=== PATIENT | female | born 1990 | race Two or more races ===

== ENCOUNTER 2018-12-22 10:44 | Inpatient (IN) | payer MEDICAID ==
[~2018-12-22] VITALS: Ht 165.1 cm; Wt 73.0 kg
[2018-12-22] MEDS ORDERED: MIRT15 PO (10:49)
[2018-12-22] MEDS ORDERED: QUET25TA PO (10:50)
[2018-12-22] MEDS ORDERED: LAMO100 PO (10:50)
[2018-12-22] MEDS ORDERED: ESCI20TA PO (10:50)
[2018-12-22] MEDS ORDERED: GABA-531 PO (10:52)
[2018-12-22] MEDS ORDERED: GABA-529 PO (10:52)
[2018-12-22 11:12] VITALS: BP 121/80
[2018-12-22] MEDS: GABAPENTIN 100 MG CAPSULE PO SCH (13:01)
[2018-12-22] MEDS: MIRTAZAPINE 15 MG TABLET PO SCH (13:01)
[2018-12-22] MEDS: LamoTRIgine 100 MG TABLET PO SCH (13:02)
[2018-12-22] MEDS: ESCITALOPRAM OXALATE 20 MG TABLET PO SCH (13:02)
[2018-12-22] MEDS ORDERED: LOPERAMIDE HCL 2 MG CAPSULE PO PRN (14:30)
[2018-12-22] MEDS ORDERED: CloNIDine HCL 0.1 MG TABLET PO PRN (14:30)
[2018-12-22] MEDS ORDERED: ALBUTEROL SULFATE HFA 90 MCG/PUFF 8 GM INHALER IH PRN (14:30)
[2018-12-22] MEDS ORDERED: NICOTINE 14 MG/24 HOUR PATCH TD PRN (14:30)
[2018-12-22] MEDS ORDERED: ACETAMINOPHEN 325 MG TABLET PO PRN (14:30)
[2018-12-22] MEDS ORDERED: ONDANSETRON HCL 4 MG TABLET PO PRN (14:30)
[2018-12-22] MEDS ORDERED: MAGNESIUM HYDROXIDE SUSPENSION 30 ML UDCUP PO PRN (14:30)
[2018-12-22] MEDS ORDERED: DOCUSATE SODIUM 100 MG CAPSULE PO PRN (14:30)
[2018-12-22] MEDS ORDERED: IBUPROFEN 400 MG TABLET PO PRN (14:30)
[2018-12-22] MEDS ORDERED: MAG HYDROX/AL HYDROX/SIMETH ES 30 ML SUSPENSION UDCUP PO PRN (14:30)
[2018-12-22] MEDS ORDERED: PETROLATUM,WHITE 28 GM JELLY TP PRN (14:30)
[2018-12-22] MEDS ORDERED: GuaiFENesin/D-METHORPHAN [SUGAR-FREE] 200-20MG/10 ML SYRUP UDCUP PO PRN (14:30)
[2018-12-22] MEDS: GABAPENTIN 300 MG CAPSULE PO SCH (20:39)
[2018-12-22] MEDS ORDERED: QUEtiapine FUMARATE 25 MG TABLET PO SCH (21:00)
[2018-12-23 00:07] VITALS: BP 125/77
[2018-12-23 08:23] VITALS: BP 108/71
[2018-12-23] MEDS ORDERED: LamoTRIgine 100 MG TABLET PO SCH (09:00)
[2018-12-23] MEDS ORDERED: GABAPENTIN 100 MG CAPSULE PO SCH (09:00)
[2018-12-23] MEDS ORDERED: ESCITALOPRAM OXALATE 20 MG TABLET PO SCH (09:00)
[2018-12-23] MEDS ORDERED: MIRTAZAPINE 15 MG TABLET PO SCH (09:00)
[2018-12-23] MEDS: MIRTAZAPINE 15 MG TABLET PO SCH (09:18)
[2018-12-23] MEDS: ESCITALOPRAM OXALATE 20 MG TABLET PO SCH (09:18)
[2018-12-23] MEDS: GABAPENTIN 100 MG CAPSULE PO SCH (09:19)
[2018-12-23] MEDS: LamoTRIgine 100 MG TABLET PO SCH (09:19)
[2018-12-23] MEDS ORDERED: NALT50TA PO (16:15)
[2018-12-23] MEDS ORDERED: MIRT15 PO (16:15)
[2018-12-23] MEDS ORDERED: LOPERAMIDE HCL 2 MG CAPSULE PO PRN (16:15)
[2018-12-23] MEDS ORDERED: GuaiFENesin/D-METHORPHAN [SUGAR-FREE] 200-20MG/10 ML SYRUP UDCUP PO PRN (16:15)
[2018-12-23] MEDS ORDERED: ESCI20TA36 PO (16:15)
[2018-12-23] MEDS ORDERED: QUET25TA34 PO (16:15)
[2018-12-23] MEDS ORDERED: GABA-529 PO (16:15)
[2018-12-23] MEDS ORDERED: GABA-531 PO (16:15)
[2018-12-23] MEDS ORDERED: HydrOXYzine PAMOATE 50 MG CAPSULE PO PRN (16:15)
[2018-12-23] MEDS ORDERED: LAMO100 PO (16:15)
[2018-12-23 16:55] VITALS: BP 116/74
[2018-12-23] MEDS: THIAMINE HCL 100 MG TABLET PO SCH (17:00)
[2018-12-23] MEDS: GABAPENTIN 300 MG CAPSULE PO SCH (20:37)
[2018-12-23] MEDS ORDERED: QUEtiapine FUMARATE 25 MG TABLET PO SCH (21:00)
[2018-12-24 06:28] VITALS: BP 103/60
[2018-12-24 08:13] VITALS: BP 108/57
[2018-12-24 08:21] LABS: AMPHET/METH SCREEN,URINE POSITIVE (NEGATIVE); BARBITURATE SCREEN, URINE NEGATIVE (NEGATIVE); BENZODIAZEPINES SCREEN,URINE NEGATIVE (NEGATIVE); CANNABINOID SCREEN,URINE POSITIVE (NEGATIVE); COCAINE SCREEN,URINE NEGATIVE (NEGATIVE); METHADONE SCREEN, URINE NEGATIVE (NEGATIVE); OPIATE SCREEN,URINE NEGATIVE (NEGATIVE); PHENCYCLIDINE SCREEN,URINE NEGATIVE (NEGATIVE)
[2018-12-24] MEDS ORDERED: MULTIVITAMINS WITH MINERALS, THERAPEUTIC TABLET PO SCH (09:00)
[2018-12-24] MEDS ORDERED: FOLIC ACID 1 MG TABLET PO SCH (09:00)
[2018-12-24] MEDS ORDERED: NALTREXONE HCL 50 MG TABLET PO SCH (09:00)
[2018-12-24] MEDS: GABAPENTIN 100 MG CAPSULE PO SCH (09:41)
[2018-12-24] MEDS: THIAMINE HCL 100 MG TABLET PO SCH (09:41)
[2018-12-24] MEDS: MIRTAZAPINE 15 MG TABLET PO SCH (09:41)
[2018-12-24] MEDS: ESCITALOPRAM OXALATE 20 MG TABLET PO SCH (09:41)
[2018-12-24] MEDS: LamoTRIgine 100 MG TABLET PO SCH (09:42)
[2018-12-24 09:44] LABS: APPEARANCE,URINE CLEAR (CLEAR); BILIRUBIN,URINE NEGATIVE (NEGATIVE); GLUCOSE, URINE (UA) NEGATIVE (NEGATIVE); KETONES,URINE NEGATIVE (NEGATIVE); LEUKOCYTE ESTERASE ,URINE NEGATIVE (NEGATIVE); NITRATE,URINE NEGATIVE (NEGATIVE); OCCULT BLOOD,URINE MODERATE (NEGATIVE); PROTEIN,URINE NEGATIVE (NEGATIVE); UROBILINOGEN,URINE 0.2 mg/dL (<=1.0)
[2018-12-24 10:07] LABS: BACTERIA,URINE Rare /HPF (None Seen); SQUAMOUS EPITHELIAL CELL,UR Moderate /LPF (None Seen); WBC,URINE None Seen /HPF (0-5)
[2018-12-24] MEDS ORDERED: NALT50TA6 PO (12:37)
== END 2018-12-24 13:20 | disposition home or self-care (01) | DRG 750 ==
LOC: B3A 10:44
PROVIDERS: ADMIT Psychiatry & Neurology Psychiatry; ATTEND Psychiatry & Neurology Psychiatry
DX: F25.0 Schizoaffective disorder, bipolar type (principal); F10.10 Alcohol abuse, uncomplicated; G44.209 Tension-type headache, unspecified, not intractable; F15.90 Other stimulant use, unspecified, uncomplicated; Z88.5 Allergy status to narcotic agent; Z88.8 Allergy status to other drugs, medicaments and biological substances
CPT/HCPCS: 80307

== ENCOUNTER 2019-05-28 11:04 | Emergency (ER) | payer MEDICAID ==
[~2019-05-28] VITALS: Ht 167.6 cm; Wt 79.5 kg
[~2019-05-28 11:04] MED LIST: ESCI20TA PO; ESCI20TA36 PO; GABA-529 PO; GABA-531 PO; LAMO100 PO; MIRT15 PO; NALT50TA PO; NALT50TA6 PO; QUET25TA PO; QUET25TA34 PO
[2019-05-28] MEDS ORDERED: QUET200T PO (13:36)
[2019-05-28] MEDS ORDERED: SULFAMETHOX/TRIMETH DS 800-160 MG/TABLET PO ONE (13:45)
[2019-05-28] MEDS ORDERED: IBUPROFEN 600 MG TABLET PO ONE (13:45)
[2019-05-28] MEDS ORDERED: CEPHALEXIN MONOHYDRATE 500 MG CAPSULE PO ONE (13:45)
[2019-05-28 17:14] VITALS: BP 112/68
== END 2019-05-28 17:35 | disposition home or self-care (01) ==
LOC: EMS 11:07
DX: L03.113 Cellulitis of right upper limb (principal); F11.90 Opioid use, unspecified, uncomplicated; Z88.5 Allergy status to narcotic agent
CPT/HCPCS: 93971

== ENCOUNTER 2019-08-25 11:25 | Inpatient (IN) | payer MEDICAID ==
[~2019-08-25] VITALS: Ht 167.6 cm; Wt 84.8 kg
[~2019-08-25 11:25] MED LIST changes: -ESCI20TA36 PO; +MIRT-92 PO; -MIRT15 PO; -NALT50TA PO; +QUET200T PO; -QUET25TA PO; -QUET25TA34 PO
[2019-08-25] MEDS ORDERED: CARI3CAP PO (11:46)
[2019-08-25 12:03] LABS: BASOPHILS % (AUTO) 0.6 % (0.0-2.0); EOSINOPHILS % (AUTO) 0.1 % (1.0-6.0); HEMATOCRIT 34.7 % (36-46); HEMOGLOBIN 11.8 g/dL (12.0-16.0); LYMPHOCYTES % (AUTO) 20.2 % (22.0-44.0); MEAN CORPUSCULAR HEMOGLOBIN 30.4 pg (26.0-34.0); MEAN CORPUSCULAR HGB CONC 34.1 G/dL (31.0-37.0); MEAN CORPUSCULAR VOLUME 89 fL (80-100); MONOCYTES # (AUTO) 0.3 K/uL (0.1-1.0); MONOCYTES % (AUTO) 6.9 % (2.0-9.0); NEUTROPHILS # (AUTO) 3.5 K/uL (1.8-7.7); NEUTROPHILS % (AUTO) 72.2 % (40.0-70.0); PLATELET COUNT (AUTO) 213 K/uL (150-450); RED BLOOD CELL COUNT(AUTO) 3.89 MIL/uL (4.00-5.20); RED CELL DISTRIBUTION WIDTH 15.4 % (11.5-14.5)
[2019-08-25 12:11] LABS: ANION GAP 8 mmol/L (8-16); CALCIUM, TOTAL 8.8 mg/dL (8.8-10.5); CARBON DIOXIDE 28 mmol/L (22-29); CHLORIDE 105 mmol/L (98-107); CREATININE 0.56 mg/dL (0.60-1.30); GLOMERULAR FILTR. RATE CALC > 60 mL/min (>60); GLUCOSE,RANDOM 97 mg/dL (70-110); POTASSIUM 3.4 mmol/L (3.5-5.1); SODIUM SERUM 141 mmol/L (136-145); UREA NITROGEN, BLOOD 11 mg/dL (7-18)
[2019-08-25 12:17] LABS: ALANINE AMINOTRANSFERASE 31 U/L (12-78); ALBUMIN 3.8 g/dL (3.4-5.0); ALKALINE PHOSPHATASE 82 U/L (46-116); ASPARTATE AMINOTRANSFERASE 20 U/L (15-37); BILIRUBIN,TOTAL 0.5 mg/dL (0.1-1.0); TOTAL PROTEIN, SERUM 7.2 g/dL (6.4-8.2)
[2019-08-25] MEDS ORDERED: ZOLPIDEM TARTRATE 10 MG TABLET PO PRN (12:45)
[2019-08-25] MEDS ORDERED: HALOPERIDOL 5 MG TABLET PO PRN (12:45)
[2019-08-25 13:13] LABS: APPEARANCE,URINE CLEAR (CLEAR); BILIRUBIN,URINE NEGATIVE (NEGATIVE); GLUCOSE, URINE (UA) NEGATIVE (NEGATIVE); KETONES,URINE NEGATIVE (NEGATIVE); LEUKOCYTE ESTERASE ,URINE NEGATIVE (NEGATIVE); NITRATE,URINE NEGATIVE (NEGATIVE); OCCULT BLOOD,URINE NEGATIVE (NEGATIVE); PROTEIN,URINE NEGATIVE (NEGATIVE); UROBILINOGEN,URINE 0.2 mg/dL (<=1.0)
[2019-08-25 13:17] LABS: AMPHET/METH SCREEN,URINE POSITIVE (NEGATIVE); BARBITURATE SCREEN, URINE NEGATIVE (NEGATIVE); BENZODIAZEPINES SCREEN,URINE NEGATIVE (NEGATIVE); CANNABINOID SCREEN,URINE POSITIVE (NEGATIVE); COCAINE SCREEN,URINE NEGATIVE (NEGATIVE); METHADONE SCREEN, URINE NEGATIVE (NEGATIVE); OPIATE SCREEN,URINE NEGATIVE (NEGATIVE)
[2019-08-25 13:18] LABS: PHENCYCLIDINE SCREEN,URINE NEGATIVE (NEGATIVE)
[2019-08-25 16:49] VITALS: BP 104/65
[2019-08-25] MEDS ORDERED: INFLUENZA VIRUS VACCINE QVS 2019-20 (3YR+)/PF 60 MCG/0.5 ML SYRINGE IM ONE (17:15)
[2019-08-25] MEDS ORDERED: POTASSIUM CHLORIDE 20 MEQ ER TABLET PO ONE (17:30)
[2019-08-25] MEDS: LORazepam 2 MG TABLET PO PRN (17:38)
[2019-08-25] MEDS: NICOTINE 21 MG/24 HOUR PATCH TD SCH (17:38)
[2019-08-26 05:04] VITALS: BP 101/68
[2019-08-26] MEDS: NICOTINE 21 MG/24 HOUR PATCH TD SCH (09:15)
[2019-08-26 09:23] LABS: CHOL/HDL RATIO 2.4 (3.9-5.7); FREE T4 (FREE THYROXINE) 0.98 ng/dL (0.76-1.46); POTASSIUM 4.2 mmol/L (3.5-5.1); THYROID STIMULATING HORMONE 1.94 uIU/mL (0.36-3.74)
[2019-08-26] MEDS ORDERED: DOCUSATE SODIUM 100 MG CAPSULE PO PRN (09:30)
[2019-08-26] MEDS ORDERED: ACETAMINOPHEN 325 MG TABLET PO PRN (09:30)
[2019-08-26] MEDS ORDERED: LOPERAMIDE HCL 2 MG CAPSULE PO PRN (09:30)
[2019-08-26] MEDS ORDERED: BENZOCAINE/MENTHOL LOZENGE MM PRN (09:30)
[2019-08-26] MEDS ORDERED: MAG HYDROX/AL HYDROX/SIMETH ES 30 ML SUSPENSION UDCUP PO PRN (09:30)
[2019-08-26] MEDS ORDERED: CloNIDine HCL 0.1 MG TABLET PO PRN (09:30)
[2019-08-26] MEDS ORDERED: BACITRACIN 28.4 GM OINTMENT TP PRN (09:30)
[2019-08-26] MEDS ORDERED: IBUPROFEN 600 MG TABLET PO PRN (09:30)
[2019-08-26] MEDS ORDERED: PETROLATUM,WHITE 28 GM JELLY TP PRN (09:30)
[2019-08-26] MEDS ORDERED: ONDANSETRON HCL 4 MG TABLET PO PRN (09:30)
[2019-08-26] MEDS ORDERED: MAGNESIUM HYDROXIDE SUSPENSION 30 ML UDCUP PO PRN (09:30)
[2019-08-26] MEDS ORDERED: ALBUTEROL SULFATE HFA 90 MCG/PUFF 8 GM INHALER IH PRN (09:30)
[2019-08-26] MEDS ORDERED: OMEPRAZOLE 20 MG CAPSULE PO PRN (09:30)
[2019-08-26] MEDS: ESCITALOPRAM OXALATE 20 MG TABLET PO SCH (12:14)
[2019-08-26] MEDS: GABAPENTIN 300 MG CAPSULE PO SCH ×2 (12:14→16:20)
[2019-08-26] MEDS: BusPIRone HCL 10 MG TABLET PO SCH ×2 (12:15→16:20)
[2019-08-26] MEDS: BuPROPion HCL XL 150 MG ER TABLET PO SCH (12:15)
[2019-08-26] MEDS: LORazepam 2 MG TABLET PO PRN (14:44)
[2019-08-26 16:07] VITALS: BP 118/75
[2019-08-26] MEDS: QUEtiapine FUMARATE 100 MG TABLET PO SCH (16:20)
[2019-08-27 04:57] VITALS: BP 112/68
[2019-08-27 08:24] VITALS: BP 110/66
[2019-08-27] MEDS: ESCITALOPRAM OXALATE 20 MG TABLET PO SCH (08:58)
[2019-08-27] MEDS: GABAPENTIN 300 MG CAPSULE PO SCH ×3 (08:58→16:19)
[2019-08-27] MEDS: BuPROPion HCL XL 150 MG ER TABLET PO SCH (08:58)
[2019-08-27] MEDS: BusPIRone HCL 10 MG TABLET PO SCH ×3 (08:58→16:18)
[2019-08-27] MEDS: NICOTINE 21 MG/24 HOUR PATCH TD SCH (08:58)
[2019-08-27] MEDS: QUEtiapine FUMARATE 100 MG TABLET PO SCH ×2 (08:58→16:19)
[2019-08-27 16:00] VITALS: BP 116/66
[2019-08-27] MEDS: LORazepam 2 MG TABLET PO PRN (16:19)
[2019-08-28 05:14] VITALS: BP 113/74
[2019-08-28 08:21] VITALS: BP 116/70
[2019-08-28] MEDS: QUEtiapine FUMARATE 100 MG TABLET PO SCH (09:27)
[2019-08-28] MEDS: ESCITALOPRAM OXALATE 20 MG TABLET PO SCH (09:27)
[2019-08-28] MEDS: BusPIRone HCL 10 MG TABLET PO SCH ×2 (09:27→12:36)
[2019-08-28] MEDS: BuPROPion HCL XL 150 MG ER TABLET PO SCH (09:28)
[2019-08-28] MEDS: NICOTINE 21 MG/24 HOUR PATCH TD SCH (09:28)
[2019-08-28] MEDS: GABAPENTIN 300 MG CAPSULE PO SCH ×2 (09:28→12:36)
[2019-08-28] MEDS ORDERED: GABA-531 PO (12:56)
[2019-08-28] MEDS ORDERED: QUET100T PO (13:15)
[2019-08-28] MEDS ORDERED: ESCI20TA PO (13:15)
[2019-08-28] MEDS ORDERED: BUPR-93 PO (13:15)
[2019-08-28] MEDS ORDERED: BUSP10TA23 PO (13:25)
== END 2019-08-28 14:45 | disposition home or self-care (01) | DRG 750 ==
LOC: EMS 11:29 → B3A 14:34
PROVIDERS: ADMIT Psychiatry & Neurology Psychiatry; ATTEND Psychiatry & Neurology Psychiatry
DX: F25.1 Schizoaffective disorder, depressive type (principal); R45.851 Suicidal ideations; F12.10 Cannabis abuse, uncomplicated; F19.10 Other psychoactive substance abuse, uncomplicated; F15.90 Other stimulant use, unspecified, uncomplicated; F41.9 Anxiety disorder, unspecified; G47.00 Insomnia, unspecified; K59.00 Constipation, unspecified; F11.90 Opioid use, unspecified, uncomplicated; Z72.0 Tobacco use; Z79.899 Other long term (current) drug therapy; Z91.5 Personal history of self-harm; Z28.21 Immunization not carried out because of patient refusal
CPT/HCPCS: 84132; 84439; 84443; G0480